=== PATIENT | female | born 1975 | race Caucasian/White ===

== ENCOUNTER 2016-10-23 13:39 | Emergency (ER) | payer OTHER ==
[~2016-10-23] VITALS: Ht 154.9 cm; Wt 68.2 kg
[2016-10-23 13:44] VITALS: PULSE 104; TEMP 98.5
[2016-10-23] MEDS ORDERED: ZOLOFT 50MG50 MG PO (13:47)
[2016-10-23] MEDS ORDERED: DESYREL 100MG100 MG PO (13:48)
[2016-10-23] MEDS ORDERED: CLARITIN 1010 MG/TAB PO (13:48)
[2016-10-23 14:40] LABS: PH 5 (5-8); URINE APPEARANCE Hazy; URINE BACTERIA Rare /hpf; URINE BILIRUBIN Negative (NEGATIVE); URINE BLOOD Negative (NEGATIVE); URINE COLOR Yellow; URINE GLUCOSE Negative (NEGATIVE); URINE KETONE Negative (NEGATIVE); URINE RBC 0-2 /hpf; URINE UROBILINOGEN Negative (NEGATIVE)
[2016-10-23 15:23] LABS: BASO # 0.1 (0.0-0.2); BASO % 0.7 % (0.0-2.0); EOS # 0.2 (0.0-0.7); EOS % 1.9 % (0-4.0); GRAN # 7.6 (1.4-6.5); GRAN % 74.2 % (42.2-75.2); HEMATOCRIT 41.6 % (37.0-47.0); HEMOGLOBIN 13.8 g/dl (12.5-16.0); LYMPH # 1.4 (1.2-3.4); LYMPH % 13.7 % (20.0-51.0); MEAN CELL VOLUME 85 fl (80.0-100.0); MEAN CORPUSCULAR HEMOGLOBIN 28 pg (27.0-31.0); MEAN CORPUSCULAR HGB CONC 33 g/dl (33.0-37.0); MEAN PLATELET VOLUME 10.6 fl (7.4-10.4); MONO # 0.9 (0.1-0.6); MONO % 9.2 % (1.7-9.3); PLATELET COUNT 265 K/mm3 (130-400); RED BLOOD COUNT 4.92 M/mm3 (4.10-5.30); REDCELL DISTRIBUTION WIDTH-CV 13.3 % (11.5-14.5); WHITE BLOOD COUNT 10.2 K/mm3 (4.8-10.8)
[2016-10-23 15:25] LABS: ADJUSTED CALCIUM 9.2 mg/dL (8.4-10.2); ALBUMIN 4.5 gm/dL (3.5-5.0); BILIRUBIN,TOTAL 0.7 mg/dL (0.0-1.0); CALCIUM 9.6 mg/dL (8.4-10.2); CREATININE, serum 0.78 mg/dL (0.52-1.25); POTASSIUM 3.8 mmol/L (3.4-5.0); TOTAL PROTEIN 8.2 gm/dL (6.4-8.2)
[2016-10-23] MEDS ORDERED: MACROBID 1100 MG/CAP PO (16:22)
[2016-10-23 16:34] VITALS: BP 138/97
== END 2016-10-23 16:33 | disposition home or self-care (01) ==
LOC: COL.ER 13:39
PROVIDERS: Physician Assistant
DX: K43.9 Ventral hernia without obstruction or gangrene (principal); N39.0 Urinary tract infection, site not specified; B96.20 Unspecified Escherichia coli [E. coli] as the cause of diseases classified elsewhere
CPT/HCPCS: J7040; Q9967

== ENCOUNTER 2016-12-01 21:30 | Emergency (ER) | payer OTHER ==
[~2016-12-01] VITALS: Ht 154.9 cm; Wt 68.2 kg
[~2016-12-01 21:30] MED LIST: CLARITIN 1010 MG/TAB PO; DESYREL 100MG100 MG PO; MACROBID 1100 MG/CAP PO; ZOLOFT 50MG50 MG PO
[2016-12-01 21:31] VITALS: TEMP 98.7
[2016-12-01 22:21] LABS: BASO # 0.1 (0.0-0.2); BASO % 0.6 % (0.0-2.0); EOS # 0.2 (0.0-0.7); EOS % 1.2 % (0-4.0); GRAN # 8.9 (1.4-6.5); GRAN % 69.7 % (42.2-75.2); HEMATOCRIT 41.2 % (37.0-47.0); HEMOGLOBIN 13.7 g/dl (12.5-16.0); LYMPH # 2.9 (1.2-3.4); LYMPH % 22.5 % (20.0-51.0); MEAN CELL VOLUME 84 fl (80.0-100.0); MEAN CORPUSCULAR HEMOGLOBIN 28 pg (27.0-31.0); MEAN CORPUSCULAR HGB CONC 33 g/dl (33.0-37.0); MEAN PLATELET VOLUME 10.5 fl (7.4-10.4); MONO # 0.7 (0.1-0.6); MONO % 5.6 % (1.7-9.3); PLATELET COUNT 246 K/mm3 (130-400); RED BLOOD COUNT 4.88 M/mm3 (4.10-5.30); REDCELL DISTRIBUTION WIDTH-CV 13.5 % (11.5-14.5); WHITE BLOOD COUNT 12.7 K/mm3 (4.8-10.8)
[2016-12-01 22:30] LABS: CALCIUM 9.5 mg/dL (8.4-10.2); CREATININE, serum 0.79 mg/dL (0.52-1.25); POTASSIUM 3.8 mmol/L (3.4-5.0)
[2016-12-01 22:52] LABS: PH 7 (5-8); SQUAMOUS EPITHELIAL 0-2 /hpf; URINE APPEARANCE Clear; URINE BACTERIA Rare /hpf; URINE BILIRUBIN Negative (NEGATIVE); URINE BLOOD Negative (NEGATIVE); URINE COLOR Yellow; URINE GLUCOSE Negative (NEGATIVE); URINE KETONE Negative (NEGATIVE); URINE RBC 0-2 /hpf; URINE UROBILINOGEN Negative (NEGATIVE)
[2016-12-01 23:02] LABS: URINE WBC 0-2 /hpf
[2016-12-02] MEDS ORDERED: ULTRAM 50MG TAB50 MG PO (00:02)
[2016-12-02 00:55] VITALS: BP 164/72; PULSE 70
== END 2016-12-02 00:56 | disposition home or self-care (01) ==
LOC: COL.ER 21:30
PROVIDERS: Emergency Medicine
DX: K43.9 Ventral hernia without obstruction or gangrene (principal)
CPT/HCPCS: J1170; J1885; J7030

== ENCOUNTER 2017-02-02 05:36 | Day surgery (SDC) | payer OTHER ==
[~2017-02-02] VITALS: Ht 154.9 cm; Wt 66.8 kg
[2017-02-02] VITALS (10 sets, daily range): BP systolic 88–136; BP diastolic 55–83; PULSE 50–80; TEMP 98
[~2017-02-02 05:36] MED LIST changes: +ULTRAM 50MG TAB50 MG PO
[2017-02-02] MEDS ORDERED: ADVIL200 MG PO (06:20)
[2017-02-02] MEDS ORDERED: MOTRIN 600600 MG/TAB PO (09:01)
[2017-02-02] MEDS ORDERED: NORCO 325 MG-51 TAB PO (09:02)
== END 2017-02-02 11:45 | disposition home or self-care (01) ==
LOC: SDCO 05:36
DX: K43.6 Other and unspecified ventral hernia with obstruction, without gangrene (principal); F32.9 Major depressive disorder, single episode, unspecified; F41.9 Anxiety disorder, unspecified; F17.210 Nicotine dependence, cigarettes, uncomplicated
CPT/HCPCS: C1781; J0690; J1885; J2405; J2704; J3010; J7030

== ENCOUNTER 2017-02-13 18:46 | Emergency (ER) | payer OTHER ==
[~2017-02-13] VITALS: Ht 154.9 cm; Wt 68.2 kg
[~2017-02-13 18:46] MED LIST changes: +ADVIL200 MG PO; +MOTRIN 600600 MG/TAB PO; +NORCO 325 MG-51 TAB PO
[2017-02-13 18:53] VITALS: BP 136/85; TEMP 98.9
[2017-02-13 20:19] LABS: AMPHETAMINE URINE NEGATIVE; BARBITURATES URINE NEGATIVE; BENZODIAZEPINES URINE NEGATIVE; BUPRENORPHINE URINE NEGATIVE; METHADONE URINE NEGATIVE; OPIATES URINE NEGATIVE; OXYCODONE URINE NEGATIVE; PHENCYCLIDINE URINE NEGATIVE; PROPOXYPHENE URINE NEGATIVE; THC CANNABINOIDS URINE NEGATIVE
[2017-02-13 20:48] VITALS: PULSE 78
== END 2017-02-13 20:48 | disposition home or self-care (01) ==
LOC: COL.ER 18:46
PROVIDERS: Physician Assistant
DX: Z02.83 Encounter for blood-alcohol and blood-drug test (principal)